=== PATIENT | female | born 1970 | race Caucasian/White ===

== ENCOUNTER 2018-07-27 01:19 | Outpatient (CLI) | payer MEDICARE, MEDICAID | END 2018-07-27 23:59 | disposition home or self-care (01) | LOC: DIABETIC 01:19 | PROVIDERS: ATTEND Specialist | DX: E10.65 Type 1 diabetes mellitus with hyperglycemia (principal); I10 Essential (primary) hypertension; Z79.4 Long term (current) use of insulin | CPT/HCPCS: G0108 ==

== ENCOUNTER 2018-11-23 03:29 | Outpatient (CLI) | payer MEDICARE, MEDICAID | END 2018-11-23 23:59 | disposition home or self-care (01) | LOC: DIABETIC 03:29 | PROVIDERS: ATTEND Specialist | DX: E10.65 Type 1 diabetes mellitus with hyperglycemia (principal); Z79.4 Long term (current) use of insulin | CPT/HCPCS: G0108 ==